=== PATIENT | female | born 1955 | race Two or more races ===

== ENCOUNTER 2023-05-11 22:15 | Inpatient (IN) | payer OTHER ==
[~2023-05-11] VITALS: Ht 152.4 cm; Wt 70.9 kg
[2023-05-11 23:07] LABS: BASOPHILS % (AUTO) 0.5 % (0.0-2.0); EOSINOPHILS % (AUTO) 0.5 % (0.0-7.0); HEMATOCRIT 38.6 % (31.2-41.9); LYMPHOCYTES # (AUTO) 0.5 K/uL (0.8-4.8); MEAN CORPUSCULAR HEMOGLOBIN 29.4 uug (24.7-32.8); MEAN CORPUSCULAR HGB CONC 34 g/dL (32.3-35.6); MEAN CORPUSCULAR VOLUME 87.4 fL (75.5-95.3); MONOCYTES # (AUTO) 0.1 K/uL (0.1-1.30); NEUTROPHILS # (AUTO) 2.7 K/uL (1.8-8.9); PLATELET COUNT (AUTO) 131 K/uL (179-408); RED BLOOD CELL COUNT(AUTO) 4.41 MIL/uL (3.63-4.92); RED CELL DISTRIBUTION WIDTH 13.9 % (12.3-17.7); WHITE BLOOD COUNT (AUTO) 3.4 K/uL (3.8-11.8)
[2023-05-11 23:10] LABS: *BILIRUBIN,URIN NEGATIVE (NEGATIVE); *CLARITY,URINE CLEAR (CLEAR); *COLOR,URINE YELLOW (YELLOW); *KETONES,URINE NEGATIVE (NEGATIVE); *PROTEIN,URINE TRACE (NEGATIVE); *UROBILINOGEN,URINE 0.2 E.U./dl (NORMAL); LEUKOCYTE ESTERASE ,URINE NEGATIVE (NEGATIVE); NITRITE, URINE POSITIVE (NEGATIVE)
[2023-05-11 23:14] LABS: DIFFERENTIAL COMMENT 1
[2023-05-11 23:22] LABS: *BLOOD, URINE TRACE (NEGATIVE); UGLUCOSE 2+ (NEGATIVE)
[2023-05-11] MEDS ORDERED: MEROPENEM 1GM/NS 100ML IVPB **ER PYXIS ONLY IV ONE (23:43)
[2023-05-11 23:50] LABS: BACTERIA,URINE FEW /HPF (NONE SEEN); SQUAMOUS EPITHELIAL CELL,UR FEW /HPF (NONE SEEN); WBC,URINE NONE SEEN /HPF (0-3)
[2023-05-11] MEDS: LORAZEPAM 0.5 MG TABLET PO ONE (23:50)
[2023-05-11] MEDS: ACETAMINOPHEN ES 500 MG TABLET PO ONE (23:50)
[2023-05-11] MEDS: MEROPENEM 1 G in IV NORMAL SALINE 100 ML IV ONE (23:50)
[2023-05-11 23:52] LABS: CALCIUM 8.4 mg/dL (8.5-10.1); CARBON DIOXIDE 24 mmol/L (21-32); CHLORIDE 99 mmol/L (98-107); CREATININE 0.7 mg/dL (0.6-1.3); GLUCOSE 338 mg/dL (74-106); POTASSIUM 3.5 mmol/L (3.5-5.1); SODIUM SERUM 134 mmol/L (136-145); UREA NITROGEN, BLOOD 6 mg/dL (7-18)
[2023-05-12] LABS: ALANINE AMINOTRANSFERASE 44 U/L (14-59); ALBUMIN 3.1 g/dL (3.4-5.0); ALKALINE PHOSPHATASE 83 U/L (50-136); ASPARTATE AMINOTRANSFERASE 21 U/L (15-37); BILIRUBIN,DIRECT 0.7 mg/dL (0.0-0.2); TOTAL PROTEIN, SERUM 7.3 g/dL (6.4-8.2)
[2023-05-12 00:06] LABS: LACTIC ACID 2.1 mmol/L (0.4-2.0)
[2023-05-12] MEDS ORDERED: ATEN50TA PO (00:08)
[2023-05-12] MEDS ORDERED: GLIP5TAB13 PO (00:08)
[2023-05-12] MEDS ORDERED: LOSA50TA39 PO (00:08)
[2023-05-12] MEDS ORDERED: OMEP20TA5 PO (00:08)
[2023-05-12] MEDS ORDERED: PRAV20TA4 PO (00:08)
[2023-05-12] MEDS ORDERED: HYDR12.55 PO (00:08)
[2023-05-12] MEDS ORDERED: CHOL200010 PO (00:08)
[2023-05-12] MEDS ORDERED: METF-442 PO (00:08)
[2023-05-12] MEDS ORDERED: hydrALAZINE HCL 20 MG/1 ML VIAL IV PRN (02:15)
[2023-05-12] MEDS ORDERED: ONDANSETRON 4 MG/2 ML VIAL IV PRN (02:15)
[2023-05-12] MEDS ORDERED: DEXTROSE 50% 50 ML DISP.SYRIN IV PRN (02:15)
[2023-05-12] MEDS: IV NS 1000 ML 1,000 ML IV SCH (03:59)
[2023-05-12 04:00] VITALS: BP 106/84; TEMP 98.4; O2SAT 96
[2023-05-12] MEDS ORDERED: CEFEPIME HCL 1 G VIAL ONE (04:51)
[2023-05-12] MEDS: CEFEPIME HCL 1 G in IV DEXTROSE 5% 50 ML IV ONE (05:12)
[2023-05-12] MEDS: PANTOPRAZOLE SODIUM 40 MG TABLET.DR PO SCH (06:22)
[2023-05-12] MEDS: BLOOD SUGAR DIAGNOSTIC 1 EACH STRIP VI SCH (07:02)
[2023-05-12] MEDS: HYDROCHLOROTHIAZIDE 12.5 MG CAPSULE PO SCH (08:16)
[2023-05-12] MEDS: DOCUSATE SODIUM 100 MG CAPSULE PO SCH (08:16)
[2023-05-12] MEDS: LOSARTAN POTASSIUM 50 MG TABLET PO SCH (08:17)
[2023-05-12] MEDS: ATENOLOL 50 MG TABLET PO SCH (08:17)
[2023-05-12] MEDS: HEPARIN SODIUM,PORCINE 5,000 UNITS/ML VIAL SQ SCH (08:18)
[2023-05-12] MEDS: INSULIN REGULAR, HUMAN 300 UNIT/3 ML VIAL SQ PRN (08:22)
[2023-05-12 09:41] LABS: BASOPHILS % (AUTO) 0.4 % (0.0-2.0); EOSINOPHILS % (AUTO) 0.2 % (0.0-7.0); HEMATOCRIT 35.9 % (31.2-41.9); HEMOGLOBIN 12.1 g/dL (10.9-14.3); LYMPHOCYTES # (AUTO) 0.5 K/uL (0.8-4.8); LYMPHOCYTES % (AUTO) 7.9 % (20.5-51.5); MEAN CORPUSCULAR HEMOGLOBIN 29.6 uug (24.7-32.8); MEAN CORPUSCULAR HGB CONC 34 g/dL (32.3-35.6); MEAN CORPUSCULAR VOLUME 88.1 fL (75.5-95.3); MONOCYTES # (AUTO) 0.2 K/uL (0.1-1.30); MONOCYTES % (AUTO) 3.5 % (0.0-11.0); NEUTROPHILS # (AUTO) 5.8 K/uL (1.8-8.9); PLATELET COUNT (AUTO) 119 K/uL (179-408); RED BLOOD CELL COUNT(AUTO) 4.08 MIL/uL (3.63-4.92); RED CELL DISTRIBUTION WIDTH 14.1 % (12.3-17.7); WHITE BLOOD COUNT (AUTO) 6.6 K/uL (3.8-11.8)
[2023-05-12 09:47] VITALS: BP 122/60; TEMP 97.8; O2SAT 96
[2023-05-12 09:58] LABS: CALCIUM 8.3 mg/dL (8.5-10.1); CREATININE 0.8 mg/dL (0.6-1.3); POTASSIUM 3.7 mmol/L (3.5-5.1)
[2023-05-12 10:13] LABS: ALBUMIN 2.7 g/dL (3.4-5.0); MAGNESIUM 1.3 mg/dL (1.8-2.4); PHOSPHOROUS 2.7 mg/dL (2.5-4.9); TOTAL PROTEIN, SERUM 6.8 g/dL (6.4-8.2)
[2023-05-12 10:47] LABS: DIFFERENTIAL COMMENT 1
[2023-05-12] MEDS: CEFEPIME HCL 1 G in IV DEXTROSE 5% 50 ML IV SCH (11:20)
[2023-05-12] MEDS ORDERED: IOHEXOL 350 100 ML INFUS..BTL ONE (11:51)
[2023-05-12] MEDS ORDERED: SWABABLE VALVE TRANSFER SET EA MC ONE (11:51)
[2023-05-12] MEDS ORDERED: IV NORMAL SALINE 250 ML IV ONE (11:53)
[2023-05-12] MEDS: MAGNESIUM SULFATE/D5W 100 ML IV SCH (12:35)
[2023-05-12 13:14] VITALS: BP 148/70; TEMP 101.4; O2SAT 96
[2023-05-12] MEDS ORDERED: CEFEPIME HCL 1 G in IV DEXTROSE 5% 50 ML IV SCH (14:00)
[2023-05-12] MEDS: POTASSIUM CHLORIDE 20 MEQ in IV D5/ 0.9% NACL 1,000 ML IV PRN (15:08)
[2023-05-12 16:00] VITALS: BP 112/59; TEMP 97.6; O2SAT 97
[2023-05-12] MEDS ORDERED: PIPERACILLIN SODIUM/TAZOBACTAM 3.375 G in IV DEXTROSE 5% 50 ML IV SCH ×2 (17:15→22:00)
[2023-05-12 20:00] VITALS: BP 124/50; TEMP 99.3; O2SAT 95
[2023-05-12] MEDS: ATORVASTATIN 10 MG TABLET PO SCH (20:16)
[2023-05-12] MEDS: INSULIN REGULAR, HUMAN 300 UNITS/3 ML VIAL SQ PRN (20:57)
[2023-05-12] MEDS: PIPERACILLIN SODIUM/TAZOBACTAM 3.375 G in IV DEXTROSE 5% 100 ML IV SCH (21:02)
[2023-05-12 23:44] VITALS: BP 131/51; TEMP 98.9; O2SAT 91
[2023-05-13] VITALS (7 sets, daily range): BP systolic 118–134; BP diastolic 47–59; TEMP 98.2–99.1; O2SAT 95–97
[2023-05-13 06:20] LABS: MONOCYTES # (AUTO) 0.6 K/uL (0.1-1.30); NEUTROPHILS # (AUTO) 4.7 K/uL (1.8-8.9); PLATELET COUNT (AUTO) 99 K/uL (179-408)
[2023-05-13 06:36] LABS: ALBUMIN 2.5 g/dL (3.4-5.0); BILIRUBIN,TOTAL 1.2 mg/dL (0.2-1.0); CALCIUM 8.3 mg/dL (8.5-10.1); CREATININE 0.7 mg/dL (0.6-1.3); PHOSPHOROUS 2.2 mg/dL (2.5-4.9); POTASSIUM 3.2 mmol/L (3.5-5.1); TOTAL PROTEIN, SERUM 6.5 g/dL (6.4-8.2)
[2023-05-13 06:38] LABS: BASOPHILS % (AUTO) 0.4 % (0.0-2.0); EOSINOPHILS % (AUTO) 0.6 % (0.0-7.0); HEMATOCRIT 33.8 % (31.2-41.9); HEMOGLOBIN 11.5 g/dL (10.9-14.3); LYMPHOCYTES # (AUTO) 1.1 K/uL (0.8-4.8); LYMPHOCYTES % (AUTO) 16.2 % (20.5-51.5); MEAN CORPUSCULAR HEMOGLOBIN 29.6 uug (24.7-32.8); MEAN CORPUSCULAR HGB CONC 34 g/dL (32.3-35.6); MEAN CORPUSCULAR VOLUME 86.8 fL (75.5-95.3); MONOCYTES % (AUTO) 9.7 % (0.0-11.0); NEUTROPHILS % (AUTO) 73.1 % (38.5-71.5); RED BLOOD CELL COUNT(AUTO) 3.89 MIL/uL (3.63-4.92); RED CELL DISTRIBUTION WIDTH 13.7 % (12.3-17.7); WHITE BLOOD COUNT (AUTO) 6.5 K/uL (3.8-11.8)
[2023-05-13 06:39] LABS: DIFFERENTIAL COMMENT 1
[2023-05-13 06:58] LABS: LYMPHOCYTES % (MANUAL) 13 % (20-40); MONOCYTES % (MANUAL) 6 % (2-10); NEUTROPHILS % (MANUAL) 81 % (42-75)
[2023-05-13 06:59] LABS: ANISOCYTOSIS 1+; PLATELET ESTIMATE MARKE
[2023-05-13] MEDS: POTASSIUM PHOSPHATE MM 15 MMOL in IV NORMAL SALINE 250 ML IV ONE (10:47)
[2023-05-13] MEDS ORDERED: LEVO100T10 PO (13:04)
[2023-05-13] MEDS ORDERED: LIDOCAINE-MPF 2% 5 ML VIAL ONE (13:48)
[2023-05-13] MEDS ORDERED: METOCLOPRAMIDE HCL 10 MG/2 ML VIAL ONE (13:48)
[2023-05-13] MEDS ORDERED: GLYCOPYRROLATE 0.2 MG/ML VIAL ONE (13:48)
[2023-05-13] MEDS ORDERED: DEXAMETHASONE SOD PHOSPHATE 4 MG INJ ONE (13:48)
[2023-05-13] MEDS ORDERED: ONDANSETRON 4 MG/2 ML VIAL ONE (13:48)
[2023-05-13] MEDS ORDERED: PROPOFOL 200 MG/20 ML BOTTLE ONE (13:48)
[2023-05-13] MEDS ORDERED: CEFAZOLIN 1 G VIAL ONE (13:48)
[2023-05-13] MEDS ORDERED: FENTANYL CITRATE 100 MCG/2 ML AMPUL ONE (14:10)
[2023-05-13] MEDS ORDERED: ALBUMIN HUMAN 5% 250 ML ONE (14:10)
[2023-05-13] MEDS ORDERED: KETAMINE HCL 500 MG/5 ML VIAL ONE (14:10)
[2023-05-13] MEDS ORDERED: ROCURONIUM BROMIDE 50 MG/5 ML VIAL ONE (14:11)
[2023-05-13] MEDS ORDERED: FAMOTIDINE. 20 MG/2 ML VIAL IV ONE (14:11)
[2023-05-13] MEDS ORDERED: LIDOCAINE 2% (GLYDO= UROJET) 10 ML JELLY MM ONE (14:11)
[2023-05-13] MEDS ORDERED: BACITRACIN/POLYMYXIN B OINT 15 GM TUBE ONE (15:14)
[2023-05-13] MEDS ORDERED: ROPIVACAINE HCL/PF 0.5% ( 5 MG/ML ) , 20 ML VIAL ONE (15:14)
[2023-05-13] MEDS ORDERED: LIDOCAINE 1%-EPI 1:100,000 20 ML VIAL ONE (15:14)
[2023-05-13] MEDS ORDERED: BUPIVACAINE 0.25% 30 ML VIAL ONE (15:14)
[2023-05-13] MEDS ORDERED: SEVOFLURANE 250 ML BOTTLE ONE (15:15)
[2023-05-13] MEDS ORDERED: IBUPROFEN 800 MG TABLET PO SCH (20:00)
[2023-05-13] MEDS ORDERED: ACETAMINOPHEN 325 MG TABLET PO SCH (20:00)
[2023-05-13] MEDS ORDERED: IBUPROFEN 600 MG TABLET PO SCH (20:00)
[2023-05-13] MEDS ORDERED: GABAPENTIN 100 MG CAPSULE PO SCH (20:00)
[2023-05-13] MEDS: INSULIN GLARGINE,HUM 300 UNITS/3 ML CARTRIDGE SQ SCH (20:49)
[2023-05-14] VITALS (8 sets, daily range): BP systolic 124–143; BP diastolic 50–75; TEMP 98.1–99.6; O2SAT 95–98
[2023-05-14] MEDS: MORPHINE SULFATE 2 MG/1 ML DISP.SYRIN IVP PRN (04:39)
[2023-05-14 07:00] LABS: BASOPHILS % (AUTO) 0.3 % (0.0-2.0); HEMATOCRIT 33.3 % (31.2-41.9); HEMOGLOBIN 11.3 g/dL (10.9-14.3); LYMPHOCYTES # (AUTO) 0.8 K/uL (0.8-4.8); LYMPHOCYTES % (AUTO) 15.9 % (20.5-51.5); MEAN CORPUSCULAR HEMOGLOBIN 29.5 uug (24.7-32.8); MEAN CORPUSCULAR HGB CONC 34 g/dL (32.3-35.6); MEAN CORPUSCULAR VOLUME 87.3 fL (75.5-95.3); MONOCYTES # (AUTO) 0.5 K/uL (0.1-1.30); MONOCYTES % (AUTO) 10.9 % (0.0-11.0); NEUTROPHILS # (AUTO) 3.6 K/uL (1.8-8.9); NEUTROPHILS % (AUTO) 72.9 % (38.5-71.5); PLATELET COUNT (AUTO) 109 K/uL (179-408); RED BLOOD CELL COUNT(AUTO) 3.82 MIL/uL (3.63-4.92); RED CELL DISTRIBUTION WIDTH 13.9 % (12.3-17.7); WHITE BLOOD COUNT (AUTO) 4.9 K/uL (3.8-11.8)
[2023-05-14 07:20] LABS: ALBUMIN 2.7 g/dL (3.4-5.0); BILIRUBIN,TOTAL 0.8 mg/dL (0.2-1.0); CALCIUM 8.2 mg/dL (8.5-10.1); CREATININE 0.7 mg/dL (0.6-1.3); POTASSIUM 4.1 mmol/L (3.5-5.1); TOTAL PROTEIN, SERUM 6.6 g/dL (6.4-8.2)
[2023-05-14 07:21] LABS: PHOSPHOROUS 2.7 mg/dL (2.5-4.9)
[2023-05-14 07:22] LABS: DIFFERENTIAL COMMENT 1
[2023-05-14] MEDS: ENOXAPARIN SODIUM 40 MG/0.4 ML DISP.SYRIN SQ SCH (10:21)
[2023-05-14] MEDS: FUROSEMIDE 20 MG/2 ML VIAL IV ONE (11:13)
[2023-05-14] MEDS: MAGNESIUM SULFATE/D5W 100 ML IV SCH (17:29)
[2023-05-15 05:30] VITALS: BP 141/66; TEMP 98.3; O2SAT 97
[2023-05-15 06:47] LABS: BASOPHILS % (AUTO) 0.8 % (0.0-2.0); EOSINOPHILS # (AUTO) 0.1 K/uL (0.0-0.7); EOSINOPHILS % (AUTO) 1.6 % (0.0-7.0); HEMOGLOBIN 11.7 g/dL (10.9-14.3); LYMPHOCYTES # (AUTO) 1.7 K/uL (0.8-4.8); LYMPHOCYTES % (AUTO) 28.3 % (20.5-51.5); MEAN CORPUSCULAR HEMOGLOBIN 29.5 uug (24.7-32.8); MEAN CORPUSCULAR HGB CONC 35 g/dL (32.3-35.6); MEAN CORPUSCULAR VOLUME 85.5 fL (75.5-95.3); MONOCYTES # (AUTO) 0.8 K/uL (0.1-1.30); MONOCYTES % (AUTO) 12.9 % (0.0-11.0); NEUTROPHILS # (AUTO) 3.4 K/uL (1.8-8.9); NEUTROPHILS % (AUTO) 56.4 % (38.5-71.5); PLATELET COUNT (AUTO) 129 K/uL (179-408); RED BLOOD CELL COUNT(AUTO) 3.97 MIL/uL (3.63-4.92); RED CELL DISTRIBUTION WIDTH 13.9 % (12.3-17.7); WHITE BLOOD COUNT (AUTO) 6.1 K/uL (3.8-11.8)
[2023-05-15 07:00] LABS: ALBUMIN 2.6 g/dL (3.4-5.0); BILIRUBIN,TOTAL 0.8 mg/dL (0.2-1.0); CALCIUM 8.1 mg/dL (8.5-10.1); CREATININE 0.5 mg/dL (0.6-1.3); MAGNESIUM 1.6 mg/dL (1.8-2.4); PHOSPHOROUS 2.4 mg/dL (2.5-4.9); POTASSIUM 2.9 mmol/L (3.5-5.1); TOTAL PROTEIN, SERUM 6.5 g/dL (6.4-8.2)
[2023-05-15 07:21] LABS: DIFFERENTIAL COMMENT 1
[2023-05-15] MEDS: MAGNESIUM OXIDE 400 MG TABLET PO ONE (10:02)
[2023-05-15] MEDS: POTASSIUM CHLORIDE 10 MEQ TAB.PRT.SR PO SCH (10:02)
[2023-05-15 11:33] VITALS: BP 151/60; TEMP 98.8; O2SAT 97
[2023-05-15 14:37] VITALS: O2SAT 98
[2023-05-15 15:34] VITALS: BP 144/63; TEMP 99.7; O2SAT 97
[2023-05-15] MEDS: NEUTRA PHOS PACKET PO ONE (16:22)
[2023-05-15 20:00] VITALS: TEMP 99.3
[2023-05-15] MEDS: ACETAMINOPHEN 325 MG TABLET PO PRN (21:15)
[2023-05-16 04:13] VITALS: O2SAT 97
[2023-05-16 06:00] VITALS: TEMP 98.3
[2023-05-16 06:09] LABS: HEPATITIS A AB, TOTAL Positive (Negative); HEPATITIS B CORE AB, TOTAL Negative (Negative); HEPATITIS B SURFACE AB, QUAL Non Reactive (.); HEPATITIS C VIRUS ANTIBODY Non Reactive (Non Reactive)
[2023-05-16] MEDS: LEVOTHYROXINE SODIUM 100 MCG TABLET PO SCH (06:09)
[2023-05-16 07:28] LABS: BASOPHILS % (AUTO) 0.9 % (0.0-2.0); EOSINOPHILS # (AUTO) 0.2 K/uL (0.0-0.7); EOSINOPHILS % (AUTO) 3.1 % (0.0-7.0); HEMATOCRIT 35.9 % (31.2-41.9); HEMOGLOBIN 12.3 g/dL (10.9-14.3); LYMPHOCYTES # (AUTO) 1.6 K/uL (0.8-4.8); LYMPHOCYTES % (AUTO) 28.4 % (20.5-51.5); MEAN CORPUSCULAR HEMOGLOBIN 29.3 uug (24.7-32.8); MEAN CORPUSCULAR HGB CONC 34 g/dL (32.3-35.6); MEAN CORPUSCULAR VOLUME 85.3 fL (75.5-95.3); MONOCYTES # (AUTO) 0.9 K/uL (0.1-1.30); MONOCYTES % (AUTO) 15.9 % (0.0-11.0); NEUTROPHILS # (AUTO) 2.9 K/uL (1.8-8.9); NEUTROPHILS % (AUTO) 51.7 % (38.5-71.5); PLATELET COUNT (AUTO) 161 K/uL (179-408); RED BLOOD CELL COUNT(AUTO) 4.21 MIL/uL (3.63-4.92); RED CELL DISTRIBUTION WIDTH 13.4 % (12.3-17.7); WHITE BLOOD COUNT (AUTO) 5.5 K/uL (3.8-11.8)
[2023-05-16 07:43] LABS: DIFFERENTIAL COMMENT 1
[2023-05-16 07:45] LABS: CALCIUM 8.7 mg/dL (8.5-10.1); CREATININE 0.6 mg/dL (0.6-1.3); MAGNESIUM 1.7 mg/dL (1.8-2.4); PHOSPHOROUS 4.7 mg/dL (2.5-4.9)
[2023-05-16] MEDS: MAGNESIUM SULFATE/D5W 100 ML IV SCH (09:34)
[2023-05-16] MEDS ORDERED: ONDA4TAB5 PO (09:56)
[2023-05-16 10:57] VITALS: BP 119/51; TEMP 98.3; O2SAT 96
[2023-05-16 11:40] VITALS: O2SAT 97
[2023-05-16 14:22] LABS: BAND % (MANUAL) 5 % (0-10); EOSINOPHILS % (MANUAL) 2 % (0-8); LYMPHOCYTES % (MANUAL) 26 % (20-40); MONOCYTES % (MANUAL) 15 % (2-10); NEUTROPHILS % (MANUAL) 52 % (42-75)
== END 2023-05-16 15:22 | disposition home or self-care (01) | DRG 853 ==
LOC: ER 22:17 → TELE3 05-12 03:00 → MEDSURG3 05-14 09:45
PROVIDERS: ADMIT Internal Medicine; ATTEND Internal Medicine
PROC: 0DTJ4ZZ Resection of Appendix, Percutaneous Endoscopic Approach (ICD-10-PCS; principal; 2023-05-13)
PROC: 0FB04ZX Excision of Liver, Percutaneous Endoscopic Approach, Diagnostic (ICD-10-PCS; 2023-05-13)
DX: A41.9 Sepsis, unspecified organism (principal); G92.8 Other toxic encephalopathy; I50.31 Acute diastolic (congestive) heart failure; K35.80 Unspecified acute appendicitis; N39.0 Urinary tract infection, site not specified; D68.59 Other primary thrombophilia; I11.0 Hypertensive heart disease with heart failure; E87.6 Hypokalemia; E66.01 Morbid (severe) obesity due to excess calories; E03.9 Hypothyroidism, unspecified; E78.5 Hyperlipidemia, unspecified; K21.9 Gastro-esophageal reflux disease without esophagitis; E11.65 Type 2 diabetes mellitus with hyperglycemia; D25.9 Leiomyoma of uterus, unspecified; K74.60 Unspecified cirrhosis of liver; R01.1 Cardiac murmur, unspecified; K66.0 Peritoneal adhesions (postprocedural) (postinfection); E88.09 Other disorders of plasma-protein metabolism, not elsewhere classified; R65.20 Severe sepsis without septic shock; Z68.30 Body mass index [BMI] 30.0-30.9, adult; Z74.09 Other reduced mobility; Z79.890 Hormone replacement therapy; Z79.84 Long term (current) use of oral hypoglycemic drugs; Z88.8 Allergy status to other drugs, medicaments and biological substances; Z79.899 Other long term (current) drug therapy; Z90.49 Acquired absence of other specified parts of digestive tract
CPT/HCPCS: 36415; 70030-TC; 71045; 83605; 83735; 84100; 84443; 84484; 85025; 85730; 86704; 86706; 86708; 86803; 87040; 88313-TC; 93005; 93307; A4606; A4663; A9150; C1758; G0378; J0690; J0692; J1100; J1644; J1650; J1815; J1940; J2185; J2270; J2405; J2543; J2765; J2795; J3010; J3475; J3480; J3490; J7040; J7042; J7120; L8699; P9045; Q9967

== ENCOUNTER 2024-02-07 15:28 | Inpatient (IN) | payer OTHER ==
[~2024-02-07] VITALS: Ht 165.1 cm; Wt 68.0 kg
[~2024-02-07 15:28] MED LIST: ATEN50TA PO; CHOL200010 PO; GLIP5TAB13 PO; HYDR12.55 PO; LEVO100T10 PO; LOSA50TA39 PO; METF-442 PO; OMEP20TA5 PO; ONDA4TAB5 PO; PRAV20TA4 PO
[2024-02-07] MEDS ORDERED: LOSA25TA27 PO (15:48)
[2024-02-07] MEDS ORDERED: LIDOCAINE 1%-EPI 1:100,000 20 ML VIAL IJ ONE (16:00)
[2024-02-07 16:27] LABS: BASOPHILS # (AUTO) 0.1 K/UL (0.0-0.2); BASOPHILS % (AUTO) 0.6 % (0.0-2.0); EOSINOPHILS % (AUTO) 0.4 % (0.0-7.0); HEMATOCRIT 42.3 % (31.2-41.9); HEMOGLOBIN 14.2 g/dL (10.9-14.3); LYMPHOCYTES % (AUTO) 10.8 % (20.5-51.5); MEAN CORPUSCULAR HEMOGLOBIN 29.3 uug (24.7-32.8); MEAN CORPUSCULAR HGB CONC 34 g/dL (32.3-35.6); MEAN CORPUSCULAR VOLUME 87.4 fL (75.5-95.3); MONOCYTES # (AUTO) 0.4 K/uL (0.1-1.30); MONOCYTES % (AUTO) 4.7 % (0.0-11.0); NEUTROPHILS # (AUTO) 7.4 K/uL (1.8-8.9); NEUTROPHILS % (AUTO) 83.5 % (38.5-71.5); PLATELET COUNT (AUTO) 202 K/uL (179-408); RED BLOOD CELL COUNT(AUTO) 4.83 MIL/uL (3.63-4.92); RED CELL DISTRIBUTION WIDTH 13.5 % (12.3-17.7); WHITE BLOOD COUNT (AUTO) 8.9 K/uL (3.8-11.8)
[2024-02-07 16:31] LABS: DIFFERENTIAL COMMENT 1
[2024-02-07 16:41] LABS: ALBUMIN 3.7 g/dL (3.4-5.0); BILIRUBIN,DIRECT 0.3 mg/dL (0.0-0.2); BILIRUBIN,TOTAL 1.4 mg/dL (0.2-1.0); CALCIUM 9.1 mg/dL (8.5-10.1); CREATININE 0.6 mg/dL (0.6-1.3); POTASSIUM 3.9 mmol/L (3.5-5.1); TOTAL PROTEIN, SERUM 8.5 g/dL (6.4-8.2)
[2024-02-07] MEDS ORDERED: MORPHINE SULFATE 2 MG/1 ML DISP.SYRIN ONE (16:55)
[2024-02-07] MEDS ORDERED: METOCLOPRAMIDE HCL 10 MG/2 ML VIAL ONE (16:55)
[2024-02-07 16:59] LABS: ETHANOL < 3 MG/DL (0-10)
[2024-02-07] MEDS: METOCLOPRAMIDE HCL 10 MG/2 ML VIAL IV ONE (16:59)
[2024-02-07] MEDS: MORPHINE SULFATE 2 MG/1 ML DISP.SYRIN IV ONE (16:59)
[2024-02-07 17:02] LABS: ACETAMINOPHEN 3.8 ug/mL (10-30)
[2024-02-07 17:30] LABS: *BILIRUBIN,URIN NEGATIVE (NEGATIVE); *CLARITY,URINE CLEAR (CLEAR); *COLOR,URINE YELLOW (YELLOW); *KETONES,URINE NEGATIVE (NEGATIVE); *PROTEIN,URINE NEGATIVE (NEGATIVE); *UROBILINOGEN,URINE 0.2 E.U./dl (NORMAL); LEUKOCYTE ESTERASE ,URINE TRACE (NEGATIVE); NITRITE, URINE POSITIVE (NEGATIVE); PH,URINE 8.5 (5.0-8.0); UGLUCOSE NEGATIVE (NEGATIVE)
[2024-02-07 17:33] LABS: *BLOOD, URINE TRACE (NEGATIVE)
[2024-02-07 17:44] LABS: BACTERIA,URINE MODERATE /HPF (NONE SEEN); RBC,URINE 0-3 /HPF (0-3); SQUAMOUS EPITHELIAL CELL,UR FEW /HPF (NONE SEEN)
[2024-02-07] MEDS ORDERED: FOSFOMYCIN TROMETHAMINE 3 GM PACKET ONE (18:56)
[2024-02-07] MEDS: FOSFOMYCIN TROMETHAMINE 3 GM PACKET PO ONE (19:00)
[2024-02-07] MEDS ORDERED: ONDANSETRON 4 MG/2 ML VIAL IV PRN (23:00)
[2024-02-07] MEDS ORDERED: REMEDY ESSENTIAL ZINC PASTE 113 GM TP PRN (23:00)
[2024-02-07 23:21] LABS: IRON, SERUM 39 ug/dL (50-175)
[2024-02-08] VITALS: BP 143/76; TEMP 98.4; O2SAT 96
[2024-02-08] MEDS ORDERED: DEXTROSE 50% 50 ML DISP.SYRIN IV PRN (01:45)
[2024-02-08] MEDS ORDERED: CEFTRIAXONE /D5W 50ML IVPB **ER PYXIS IV ONE (01:56)
[2024-02-08] MEDS: CEFTRIAXONE 1 G in IV DEXTROSE 5% 50 ML IV SCH (02:36)
[2024-02-08] MEDS: ENOXAPARIN SODIUM 40 MG/0.4 ML DISP.SYRIN SQ SCH (02:37)
[2024-02-08 05:20] VITALS: BP 165/70; TEMP 97.9; O2SAT 95
[2024-02-08] MEDS: PANTOPRAZOLE SODIUM 40 MG TABLET.DR PO SCH (06:40)
[2024-02-08] MEDS: LEVOTHYROXINE SODIUM 100 MCG TABLET PO SCH (06:40)
[2024-02-08] MEDS: BLOOD SUGAR DIAGNOSTIC 1 EACH STRIP VI SCH (06:41)
[2024-02-08 06:56] LABS: CREATININE 0.7 mg/dL (0.6-1.3); MAGNESIUM 1.9 mg/dL (1.8-2.4); PHOSPHOROUS 3.4 mg/dL (2.5-4.9); POTASSIUM 3.9 mmol/L (3.5-5.1)
[2024-02-08 07:02] LABS: BASOPHILS % (AUTO) 0.7 % (0.0-2.0); HEMATOCRIT 38.4 % (31.2-41.9); HEMOGLOBIN 13.4 g/dL (10.9-14.3); LYMPHOCYTES # (AUTO) 0.8 K/uL (0.8-4.8); LYMPHOCYTES % (AUTO) 11.7 % (20.5-51.5); MEAN CORPUSCULAR HEMOGLOBIN 29.9 uug (24.7-32.8); MEAN CORPUSCULAR HGB CONC 35 g/dL (32.3-35.6); MEAN CORPUSCULAR VOLUME 85.8 fL (75.5-95.3); MONOCYTES # (AUTO) 0.5 K/uL (0.1-1.30); MONOCYTES % (AUTO) 6.8 % (0.0-11.0); NEUTROPHILS # (AUTO) 5.5 K/uL (1.8-8.9); NEUTROPHILS % (AUTO) 80.8 % (38.5-71.5); PLATELET COUNT (AUTO) 176 K/uL (179-408); RED BLOOD CELL COUNT(AUTO) 4.47 MIL/uL (3.63-4.92); RED CELL DISTRIBUTION WIDTH 13.4 % (12.3-17.7); WHITE BLOOD COUNT (AUTO) 6.8 K/uL (3.8-11.8)
[2024-02-08 07:56] VITALS: BP 163/77; TEMP 97.3; O2SAT 97
[2024-02-08] MEDS: LOSARTAN POTASSIUM 50 MG TABLET PO SCH (08:58)
[2024-02-08] MEDS: INSULIN REGULAR, HUMAN 1000 UNIT/10 ML VIAL SQ PRN (09:01)
[2024-02-08] MEDS: ACETAMINOPHEN 325 MG TABLET PO PRN (11:00)
[2024-02-08] MEDS: MECLIZINE HCL 25 MG TABLET PO ONE (14:58)
[2024-02-08] MEDS ORDERED: PRAV20TA4 PO (15:53)
[2024-02-08 16:00] VITALS: BP 146/72; TEMP 97.2; O2SAT 97
[2024-02-08] MEDS ORDERED: ASPI81TA31 PO (17:11)
[2024-02-08] MEDS: hydrALAZINE HCL 20 MG/1 ML VIAL IV PRN (18:28)
[2024-02-08] MEDS: FUROSEMIDE 40 MG/4 ML VIAL IV ONE (19:24)
[2024-02-08] MEDS: ATORVASTATIN 40 MG TABLET PO SCH (21:12)
[2024-02-08 21:15] VITALS: BP 158/67; TEMP 100.6
[2024-02-09 05:51] VITALS: BP 135/57; TEMP 97.9
[2024-02-09 06:50] LABS: BASOPHILS % (AUTO) 0.7 % (0.0-2.0); HEMATOCRIT 40.4 % (31.2-41.9); HEMOGLOBIN 14.1 g/dL (10.9-14.3); LYMPHOCYTES # (AUTO) 1.1 K/uL (0.8-4.8); LYMPHOCYTES % (AUTO) 18.5 % (20.5-51.5); MEAN CORPUSCULAR HGB CONC 35 g/dL (32.3-35.6); MONOCYTES # (AUTO) 0.6 K/uL (0.1-1.30); MONOCYTES % (AUTO) 10.3 % (0.0-11.0); NEUTROPHILS # (AUTO) 4.3 K/uL (1.8-8.9); NEUTROPHILS % (AUTO) 70.5 % (38.5-71.5); PLATELET COUNT (AUTO) 150 K/uL (179-408); RED CELL DISTRIBUTION WIDTH 13.5 % (12.3-17.7); WHITE BLOOD COUNT (AUTO) 6.1 K/uL (3.8-11.8)
[2024-02-09 07:10] LABS: CALCIUM 9.6 mg/dL (8.5-10.1); CREATININE 0.7 mg/dL (0.6-1.3); PHOSPHOROUS 3.8 mg/dL (2.5-4.9); POTASSIUM 3.4 mmol/L (3.5-5.1)
[2024-02-09 07:11] LABS: DIFFERENTIAL COMMENT 1
[2024-02-09] MEDS: ASPIRIN 81 MG TAB.CHEW PO SCH (09:24)
[2024-02-09] MEDS: ATENOLOL 50 MG TABLET PO SCH (09:28)
[2024-02-09] MEDS: POTASSIUM CHLORIDE 20 MEQ TAB.PRT.SR PO ONE (10:41)
[2024-02-09 12:00] VITALS: BP 160/78; TEMP 97.8; O2SAT 100
[2024-02-09] MEDS ORDERED: MEROPENEM 1 G in IV NORMAL SALINE 100 ML IV SCH (12:00)
[2024-02-09] MEDS: MECLIZINE HCL 25 MG TABLET PO PRN (12:33)
[2024-02-09 13:00] VITALS: BP 139/62; O2SAT 97
[2024-02-09] MEDS: MEROPENEM 1 G in IV NORMAL SALINE 100 ML IV SCH (13:41)
[2024-02-09 16:00] VITALS: BP 139/62; TEMP 97.2; O2SAT 97
[2024-02-09 20:00] VITALS: BP 138/60; TEMP 98.3; O2SAT 94
[2024-02-09] MEDS: INSULIN REGULAR, HUMAN 300 UNITS/3 ML VIAL SQ PRN (21:20)
[2024-02-09] MEDS: INSULIN GLARGINE,HUM 300 UNITS/3 ML CARTRIDGE SQ SCH (21:56)
[2024-02-10 05:48] VITALS: BP 147/64; TEMP 98; O2SAT 97
[2024-02-10 06:52] LABS: BASOPHILS % (AUTO) 0.8 % (0.0-2.0); EOSINOPHILS % (AUTO) 0.7 % (0.0-7.0); HEMATOCRIT 40.9 % (31.2-41.9); HEMOGLOBIN 13.9 g/dL (10.9-14.3); LYMPHOCYTES # (AUTO) 1.4 K/uL (0.8-4.8); LYMPHOCYTES % (AUTO) 27.2 % (20.5-51.5); MEAN CORPUSCULAR HEMOGLOBIN 29.6 uug (24.7-32.8); MEAN CORPUSCULAR HGB CONC 34 g/dL (32.3-35.6); MONOCYTES # (AUTO) 0.9 K/uL (0.1-1.30); MONOCYTES % (AUTO) 16.8 % (0.0-11.0); NEUTROPHILS # (AUTO) 2.9 K/uL (1.8-8.9); NEUTROPHILS % (AUTO) 54.5 % (38.5-71.5); PLATELET COUNT (AUTO) 137 K/uL (179-408); RED CELL DISTRIBUTION WIDTH 13.7 % (12.3-17.7); WHITE BLOOD COUNT (AUTO) 5.2 K/uL (3.8-11.8)
[2024-02-10 07:02] LABS: DIFFERENTIAL COMMENT 1
[2024-02-10 07:05] LABS: CALCIUM 8.8 mg/dL (8.5-10.1); CREATININE 0.6 mg/dL (0.6-1.3); PHOSPHOROUS 3.3 mg/dL (2.5-4.9)
[2024-02-10 07:08] LABS: POTASSIUM 3.8 mmol/L (3.5-5.1)
[2024-02-10 11:45] VITALS: BP 100/63; TEMP 97.8; O2SAT 95
[2024-02-10 14:37] LABS: BAND % (MANUAL) 16 % (0-10); BASOPHILS % (MANUAL) 1 % (0-2); EOSINOPHILS % (MANUAL) 2 % (0-8); LYMPHOCYTES % (MANUAL) 12 % (20-40); MONOCYTES % (MANUAL) 16 % (2-10); NEUTROPHILS % (MANUAL) 48 % (42-75); PLATELET ESTIMATE DECREASED; REACTIVE LYMPHOCYTES 5 % (0-0)
[2024-02-10 14:38] LABS: ANISOCYTOSIS 1+
[2024-02-10 15:53] VITALS: BP 137/65; TEMP 98.4; O2SAT 97
[2024-02-10 16:00] VITALS: O2SAT 96
[2024-02-10 19:00] VITALS: BP 124/58; TEMP 98.3; O2SAT 96
[2024-02-10 19:34] VITALS: O2SAT 97
[2024-02-11 00:01] VITALS: O2SAT 97
[2024-02-11 06:00] VITALS: BP 137/65; TEMP 98.2; O2SAT 97
[2024-02-11 06:53] LABS: BASOPHILS % (AUTO) 0.8 % (0.0-2.0); EOSINOPHILS # (AUTO) 0.1 K/uL (0.0-0.7); EOSINOPHILS % (AUTO) 2.2 % (0.0-7.0); HEMATOCRIT 38.9 % (31.2-41.9); HEMOGLOBIN 13.5 g/dL (10.9-14.3); LYMPHOCYTES # (AUTO) 1.8 K/uL (0.8-4.8); MEAN CORPUSCULAR HEMOGLOBIN 29.6 uug (24.7-32.8); MEAN CORPUSCULAR HGB CONC 35 g/dL (32.3-35.6); MEAN CORPUSCULAR VOLUME 85.3 fL (75.5-95.3); MONOCYTES # (AUTO) 0.7 K/uL (0.1-1.30); MONOCYTES % (AUTO) 14.8 % (0.0-11.0); NEUTROPHILS # (AUTO) 2.3 K/uL (1.8-8.9); NEUTROPHILS % (AUTO) 46.2 % (38.5-71.5); PLATELET COUNT (AUTO) 173 K/uL (179-408); RED BLOOD CELL COUNT(AUTO) 4.57 MIL/uL (3.63-4.92); RED CELL DISTRIBUTION WIDTH 13.4 % (12.3-17.7)
[2024-02-11 07:07] LABS: CALCIUM 8.9 mg/dL (8.5-10.1); CREATININE 0.6 mg/dL (0.6-1.3); MAGNESIUM 1.9 mg/dL (1.8-2.4); PHOSPHOROUS 3.1 mg/dL (2.5-4.9); POTASSIUM 4.2 mmol/L (3.5-5.1)
[2024-02-11 07:16] LABS: DIFFERENTIAL COMMENT 1
[2024-02-11 08:46] VITALS: BP 125/54; TEMP 97.7; O2SAT 99
[2024-02-11] MEDS ORDERED: SULF1TAB48 PO (11:36)
[2024-02-11 11:51] VITALS: BP 138/57; TEMP 98.1; O2SAT 94
[2024-02-11 16:01] VITALS: BP 134/60; TEMP 97.7; O2SAT 97
== END 2024-02-11 17:15 | disposition home or self-care (01) | DRG 690 ==
LOC: ER 15:29 → TELE3 22:52 → MEDSURG3 02-08 12:06
PROVIDERS: ADMIT Nurse Practitioner Acute Care; ATTEND Nurse Practitioner Acute Care
PROC: 05HB33Z Insertion of Infusion Device into Right Basilic Vein, Percutaneous Approach (ICD-10-PCS; principal; 2024-02-09)
DX: N39.0 Urinary tract infection, site not specified (principal); R78.81 Bacteremia; G61.0 Guillain-Barre syndrome; J98.11 Atelectasis; I67.89 Other cerebrovascular disease; B96.20 Unspecified Escherichia coli [E. coli] as the cause of diseases classified elsewhere; E78.5 Hyperlipidemia, unspecified; I10 Essential (primary) hypertension; E11.9 Type 2 diabetes mellitus without complications; E03.9 Hypothyroidism, unspecified; M15.9 Polyosteoarthritis, unspecified; Z90.49 Acquired absence of other specified parts of digestive tract; Z79.82 Long term (current) use of aspirin; Z79.890 Hormone replacement therapy; Z79.84 Long term (current) use of oral hypoglycemic drugs; H91.91 Unspecified hearing loss, right ear; Z87.440 Personal history of urinary (tract) infections; Z88.8 Allergy status to other drugs, medicaments and biological substances; F41.9 Anxiety disorder, unspecified; Z79.4 Long term (current) use of insulin; Z79.899 Other long term (current) drug therapy
CPT/HCPCS: 36415; 70030-TC; 70450; 71045; 83550; 83605; 83735; 84100; 84443; 84484; 85025; 87040; 87077; 93307; 93880; A4606; A4663; G0378; G0480; J0360; J0696; J1650; J1815; J1940; J2185; J2270; J2765; J8597

== ENCOUNTER 2024-09-16 23:18 | Inpatient (IN) | payer OTHER ==
[~2024-09-16] VITALS: Ht 152.4 cm; Wt 68.0 kg
[~2024-09-16 23:18] MED LIST changes: +ASPI81TA31 PO; -HYDR12.55 PO; -ONDA4TAB5 PO; +SULF1TAB48 PO
[2024-09-17] VITALS (7 sets, daily range): BP systolic 116–144; BP diastolic 46–76; TEMP 97.4–102.1; O2SAT 94–98
[2024-09-17 00:24] LABS: BASOPHILS # (AUTO) 0.1 K/UL (0.0-0.2); BASOPHILS % (AUTO) 0.4 % (0.0-2.0); EOSINOPHILS # (AUTO) 0.1 K/uL (0.0-0.7); EOSINOPHILS % (AUTO) 0.6 % (0.0-7.0); HEMATOCRIT 38.8 % (31.2-41.9); HEMOGLOBIN 13.1 g/dL (10.9-14.3); LYMPHOCYTES % (AUTO) 9.1 % (20.5-51.5); MEAN CORPUSCULAR HEMOGLOBIN 29.2 uug (24.7-32.8); MEAN CORPUSCULAR HGB CONC 34 g/dL (32.3-35.6); MEAN CORPUSCULAR VOLUME 86.3 fL (75.5-95.3); MONOCYTES # (AUTO) 0.8 K/uL (0.1-1.30); MONOCYTES % (AUTO) 7.1 % (0.0-11.0); NEUTROPHILS # (AUTO) 9.5 K/uL (1.8-8.9); NEUTROPHILS % (AUTO) 82.8 % (38.5-71.5); PLATELET COUNT (AUTO) 186 K/uL (179-408); RED CELL DISTRIBUTION WIDTH 13.8 % (12.3-17.7); WHITE BLOOD COUNT (AUTO) 11.5 K/uL (3.8-11.8)
[2024-09-17 00:30] LABS: CALCIUM 8.8 mg/dL (8.5-10.1); CARBON DIOXIDE 23 mmol/L (21-32); CHLORIDE 95 mmol/L (98-107); CREATININE 0.7 mg/dL (0.6-1.3); GLUCOSE 328 mg/dL (74-106); POTASSIUM 3.9 mmol/L (3.5-5.1); SODIUM SERUM 129 mmol/L (136-145); UREA NITROGEN, BLOOD 11 mg/dL (7-18)
[2024-09-17 00:33] LABS: DIFFERENTIAL COMMENT 1
[2024-09-17 00:35] LABS: ALANINE AMINOTRANSFERASE 43 U/L (14-59); ALBUMIN 3.3 g/dL (3.4-5.0); ALKALINE PHOSPHATASE 102 U/L (50-136); ASPARTATE AMINOTRANSFERASE 27 U/L (15-37); BILIRUBIN,TOTAL 0.9 mg/dL (0.2-1.0); TOTAL PROTEIN, SERUM 6.8 g/dL (6.4-8.2)
[2024-09-17 01:12] LABS: *BILIRUBIN,URIN NEGATIVE (NEGATIVE); *BLOOD, URINE NEGATIVE (NEGATIVE); *CLARITY,URINE CLEAR (CLEAR); *COLOR,URINE YELLOW (YELLOW); *KETONES,URINE NEGATIVE (NEGATIVE); *PROTEIN,URINE NEGATIVE (NEGATIVE); *UROBILINOGEN,URINE 0.2 E.U./dl (NORMAL); LEUKOCYTE ESTERASE ,URINE 1+ (NEGATIVE); NITRITE, URINE NEGATIVE (NEGATIVE); PH,URINE 5.5 (5.0-8.0); UGLUCOSE TRACE (NEGATIVE)
[2024-09-17 01:52] LABS: BACTERIA,URINE MODERATE /HPF (NONE SEEN); RBC,URINE 0-3 /HPF (0-3); WBC,URINE 20-50 /HPF (0-3)
[2024-09-17 01:53] LABS: SQUAMOUS EPITHELIAL CELL,UR FEW /HPF (NONE SEEN)
[2024-09-17] MEDS ORDERED: CEFTRIAXONE 1 G VIAL ONE (02:40)
[2024-09-17] MEDS: CEFTRIAXONE 1 G in IV DEXTROSE 5% 50 ML IV ONE (02:44)
[2024-09-17] MEDS: IV NS 1000 ML 1,000 ML IV ONE ×2 (03:52→04:41)
[2024-09-17] MEDS ORDERED: SEMA0.25 SQ (04:22)
[2024-09-17] MEDS ORDERED: DEXTROSE 50% 50 ML DISP.SYRIN IV PRN ×2 (06:00→11:30)
[2024-09-17] MEDS ORDERED: ONDANSETRON 4 MG/2 ML VIAL IV PRN (06:00)
[2024-09-17] MEDS ORDERED: MAGNESIUM HYDROXIDE 30 ML LIQUID UDC PO PRN (06:00)
[2024-09-17] MEDS: PANTOPRAZOLE SODIUM 40 MG TABLET.DR PO SCH (06:56)
[2024-09-17] MEDS: LEVOTHYROXINE SODIUM 100 MCG TABLET PO SCH (06:56)
[2024-09-17] MEDS: IV NS 1000 ML 1,000 ML IV PRN (06:56)
[2024-09-17] MEDS: BLOOD SUGAR DIAGNOSTIC 1 EACH STRIP VI SCH ×2 (07:04→11:38)
[2024-09-17] MEDS: INSULIN REGULAR, HUMAN 1000 UNIT/10 ML VIAL SQ PRN ×2 (08:50→11:41)
[2024-09-17] MEDS: ENOXAPARIN SODIUM 40 MG/0.4 ML DISP.SYRIN SQ SCH (08:51)
[2024-09-17] MEDS: ATENOLOL 50 MG TABLET PO SCH (08:52)
[2024-09-17] MEDS: ASPIRIN EC 81 MG TABLET.DR PO SCH (08:52)
[2024-09-17] MEDS ORDERED: Medication Not On Formulary EA (Omeprazole 20 MG) PO SCH (09:00)
[2024-09-17] MEDS ORDERED: ASPIRIN 81 MG TAB.CHEW PO SCH (09:00)
[2024-09-17] MEDS ORDERED: Cholecalciferol (Vitamin D3) (Vitamin D3) 1 CAP) PO SCH (09:00)
[2024-09-17] MEDS ORDERED: CLOT15CR27 TP (11:15)
[2024-09-17] MEDS ORDERED: ESTR42.511 TOP (11:20)
[2024-09-17] MEDS: PHENAZOPYRIDINE HCL 100 MG TABLET PO SCH (11:23)
[2024-09-17] MEDS: IV NORMAL SALINE 250 ML IV ONE (11:24)
[2024-09-17] MEDS ORDERED: LOSARTAN POTASSIUM 50 MG TABLET PO SCH (11:30)
[2024-09-17] MEDS ORDERED: INSULIN REGULAR, HUMAN 300 UNITS/3 ML VIAL SQ PRN (11:30)
[2024-09-17] MEDS: CHOLECALCIFEROL 1,000 UNIT TABLET PO SCH (11:40)
[2024-09-17] MEDS: LOSARTAN POTASSIUM 50 MG TABLET PO SCH (12:07)
[2024-09-17] MEDS: GLUCERNA SHAKE 237 ML CAN PO SCH (17:35)
[2024-09-17] MEDS: ACETAMINOPHEN 325 MG TABLET PO PRN (20:49)
[2024-09-17] MEDS: ATORVASTATIN 10 MG TABLET PO SCH (20:49)
[2024-09-18] MEDS: CEFTRIAXONE 1 G in IV DEXTROSE 5% 50 ML IV SCH (02:53)
[2024-09-18 06:00] VITALS: BP 133/48; TEMP 100.3; O2SAT 96
[2024-09-18 06:35] LABS: BASOPHILS % (AUTO) 0.2 % (0.0-2.0); EOSINOPHILS % (AUTO) 0.5 % (0.0-7.0); HEMATOCRIT 36.9 % (31.2-41.9); HEMOGLOBIN 12.6 g/dL (10.9-14.3); LYMPHOCYTES # (AUTO) 0.5 K/uL (0.8-4.8); LYMPHOCYTES % (AUTO) 6.6 % (20.5-51.5); MEAN CORPUSCULAR HEMOGLOBIN 29.5 uug (24.7-32.8); MEAN CORPUSCULAR HGB CONC 34 g/dL (32.3-35.6); MEAN CORPUSCULAR VOLUME 86.9 fL (75.5-95.3); MONOCYTES # (AUTO) 0.4 K/uL (0.1-1.30); MONOCYTES % (AUTO) 5.2 % (0.0-11.0); NEUTROPHILS # (AUTO) 7.1 K/uL (1.8-8.9); NEUTROPHILS % (AUTO) 87.5 % (38.5-71.5); PLATELET COUNT (AUTO) 119 K/uL (179-408); RED BLOOD CELL COUNT(AUTO) 4.25 MIL/uL (3.63-4.92); RED CELL DISTRIBUTION WIDTH 13.7 % (12.3-17.7); WHITE BLOOD COUNT (AUTO) 8.1 K/uL (3.8-11.8)
[2024-09-18 06:40] LABS: DIFFERENTIAL COMMENT 1
[2024-09-18 06:50] LABS: CALCIUM 7.9 mg/dL (8.5-10.1); CARBON DIOXIDE 23 mmol/L (21-32); CHLORIDE 102 mmol/L (98-107); CREATININE 0.6 mg/dL (0.6-1.3); GLUCOSE 176 mg/dL (74-106); MAGNESIUM 1.6 mg/dL (1.8-2.4); PHOSPHOROUS 2.4 mg/dL (2.5-4.9); POTASSIUM 3.5 mmol/L (3.5-5.1); SODIUM SERUM 135 mmol/L (136-145); UREA NITROGEN, BLOOD 5 mg/dL (7-18); URIC ACID 3.6 mg/dL (2.6-6.0)
[2024-09-18 06:58] LABS: THYROID STIMULATING HORMONE 0.271 mIU/mL (0.358-3.740)
[2024-09-18] MEDS: MEROPENEM 500 MG in IV NORMAL SALINE 50 ML IV SCH (10:12)
[2024-09-18 11:16] VITALS: BP 155/61; TEMP 98.9; O2SAT 94
[2024-09-18] MEDS: MAGNESIUM OXIDE 400 MG TABLET PO ONE (11:20)
[2024-09-18] MEDS: NEUTRA PHOS PACKET PO ONE (11:45)
[2024-09-18 15:40] VITALS: BP 139/66; TEMP 103; O2SAT 94
[2024-09-18 19:59] VITALS: BP 120/66; TEMP 99.3; O2SAT 96
[2024-09-19 04:59] VITALS: BP 142/75; TEMP 99; O2SAT 93
[2024-09-19] MEDS: LEVOTHYROXINE SODIUM 88 MCG TABLET PO SCH (06:05)
[2024-09-19 06:50] LABS: BASOPHILS % (AUTO) 0.4 % (0.0-2.0); CALCIUM 7.8 mg/dL (8.5-10.1); CARBON DIOXIDE 25 mmol/L (21-32); CHLORIDE 104 mmol/L (98-107); CREATININE 0.5 mg/dL (0.6-1.3); EOSINOPHILS % (AUTO) 0.3 % (0.0-7.0); GLUCOSE 157 mg/dL (74-106); HEMATOCRIT 36.7 % (31.2-41.9); HEMOGLOBIN 12.5 g/dL (10.9-14.3); LYMPHOCYTES # (AUTO) 0.8 K/uL (0.8-4.8); LYMPHOCYTES % (AUTO) 11.4 % (20.5-51.5); MAGNESIUM 1.6 mg/dL (1.8-2.4); MEAN CORPUSCULAR HEMOGLOBIN 29.3 uug (24.7-32.8); MEAN CORPUSCULAR HGB CONC 34 g/dL (32.3-35.6); MONOCYTES # (AUTO) 0.5 K/uL (0.1-1.30); MONOCYTES % (AUTO) 7.7 % (0.0-11.0); NEUTROPHILS # (AUTO) 5.3 K/uL (1.8-8.9); NEUTROPHILS % (AUTO) 80.2 % (38.5-71.5); PHOSPHOROUS 2.3 mg/dL (2.5-4.9); PLATELET COUNT (AUTO) 104 K/uL (179-408); POTASSIUM 3.3 mmol/L (3.5-5.1); RED BLOOD CELL COUNT(AUTO) 4.27 MIL/uL (3.63-4.92); RED CELL DISTRIBUTION WIDTH 13.6 % (12.3-17.7); SODIUM SERUM 138 mmol/L (136-145); UREA NITROGEN, BLOOD 6 mg/dL (7-18); WHITE BLOOD COUNT (AUTO) 6.7 K/uL (3.8-11.8)
[2024-09-19 06:59] LABS: DIFFERENTIAL COMMENT 1
[2024-09-19] MEDS: POTASSIUM CHLORIDE 20 MEQ TAB.PRT.SR PO ONE (11:30)
[2024-09-19] MEDS: MAGNESIUM OXIDE 400 MG TABLET PO ONE (11:30)
[2024-09-19] MEDS ORDERED: CEPH500C2 PO (11:36)
[2024-09-19 12:00] VITALS: BP 121/49; TEMP 97.7; O2SAT 94
[2024-09-19] MEDS: NEUTRA PHOS PACKET PO ONE (15:45)
== END 2024-09-19 15:45 | disposition home or self-care (01) | DRG 872 ==
LOC: ER 23:21 → TELE3 09-17 06:00 → UNDOADMIN 09-17 06:00 → MEDSURG3 09-17 06:01
PROVIDERS: ATTEND Nurse Practitioner Acute Care
PROC: 05HB33Z Insertion of Infusion Device into Right Basilic Vein, Percutaneous Approach (ICD-10-PCS; principal; 2024-09-17)
DX: A41.51 Sepsis due to Escherichia coli [E. coli] (principal); N39.0 Urinary tract infection, site not specified; E87.1 Hypo-osmolality and hyponatremia; E87.20 Acidosis, unspecified; E44.1 Mild protein-calorie malnutrition; E11.65 Type 2 diabetes mellitus with hyperglycemia; E86.0 Dehydration; E88.09 Other disorders of plasma-protein metabolism, not elsewhere classified; E78.5 Hyperlipidemia, unspecified; E86.1 Hypovolemia; Z87.440 Personal history of urinary (tract) infections; Z79.84 Long term (current) use of oral hypoglycemic drugs; Z79.899 Other long term (current) drug therapy; Z79.890 Hormone replacement therapy; Z79.82 Long term (current) use of aspirin; Z68.29 Body mass index [BMI] 29.0-29.9, adult
CPT/HCPCS: 36415; 70450; 71045; 83605; 83735; 84100; 84443; 84484; 84550; 85025; 87040; 87077; 87086; G0378; J0696; J1650; J1815; J2185; J3490; J7040